=== PATIENT | female | born 1975 | race Caucasian/White ===

== ENCOUNTER 2024-10-09 15:16 | Outpatient (CLI) | payer OTHER, SELFPAY ==
--- NOTE | 2024-10-09 15:30 | MR_ITS ---
EXAM: MRI of the LEFT KNEE, without contrast CLINICAL HISTORY: Other specified joint disorders, left knee. Suspected ganglion cyst. COMPARISONS: None available. TECHNICAL: MR sequences of the left knee: sagittals: PD, PDFS coronals: PD, STIR axials: PD, T2 FS CONTRAST: None SEDATION: None FINDINGS: Bones: No fracture, bone marrow contusion, or other suspicious bone marrow signal abnormality. 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 Retinacula: The medial and lateral retinacula are intact. Fat pads: The infrapatellar, quadriceps, and prefemoral fat pads are unremarkable. Knee joint: Effusion: Physiologic amount of joint fluid. Popliteal cyst: None. Intra-articular bodies: None. Posteromedial corner: The semimembranosus and pes anserine tendons are intact. Medial compartment: Medial meniscus: Intact. Cartilage: 3 x 3 mm area of grade II chondromalacia over the weight-bearing portion of the medial femoral condyle with a single superimposed slitlike full- thickness chondral fissure and minimal subjacent subchondral edema-like signal. Lateral compartment: Lateral meniscus: Intact. Cartilage: Single slitlike full-thickness chondral fissure over the posterior portion of the lateral tibial plateau. Ligaments: Anterior cruciate ligament: Intact. Posterior cruciate ligament: Intact. Medial collateral ligament: Intact. Posterior oblique ligament: Intact. Fibular collateral ligament: Intact. Posterolateral corner: The distal biceps femoris tendon, iliotibial band, popliteus tendon, popliteus muscle, popliteofibular ligament, and arcuate ligament are intact. Extensor mechanism: Patellar tendon: Intact. Quadriceps tendon: Intact. 2.3 cm in craniocaudad dimension by 2.0 cm in AP dimension by 1.3 cm in transverse dimension ganglion/synovial cyst originating from and extending anterior to the proximal tibiofibular joint. IMPRESSION: 1. 2.3 x 2.0 x 1.3 cm ganglion/synovial cyst originating from and extending anterior to the proximal tibiofibular joint. 2. 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 3. 3 x 3 mm area of grade II chondromalacia over the weight-bearing portion of the medial femoral condyle with a single superimposed slitlike full-thickness chondral fissure and minimal subjacent subchondral edema-like signal. 4. Single slitlike full-thickness chondral fissure over the posterior portion of the lateral tibial plateau. 5. No ligamentous, meniscal, or tendinous pathology of the left knee. RCB Electronically signed on 10/10/2024 9:16:00 AM by Nacho Smyth M.D.
== END 2024-10-09 15:17 | disposition home or self-care (01) ==
LOC: MRI 15:16
PROVIDERS: Visit Provider Orthopaedic Surgery Sports Medicine
DX: M25.862 Other specified joint disorders, left knee (principal); M67.462 Ganglion, left knee; M22.42 Chondromalacia patellae, left knee
CPT/HCPCS: 73721

== ENCOUNTER 2024-11-27 09:55 | Day surgery (SDC) | payer OTHER, SELFPAY ==
[2024-11-27] VITALS (13 sets, daily range): BP systolic 98–139; BP diastolic 63–89; PULSE 65–86; RESP 12–16; TEMP 36.1–36.8; O2SAT 97–100; BMI 24.3
[2024-11-27 10:11] LABS: Ur HCG Qualitative* Negative (Negative)
[2024-11-27] MEDS: SODIUM CHLORIDE 0.9 % (FLUSH) 10 ML SYRINGE IVF (10:30)
[2024-11-27] MEDS: LACTATED RINGERS 1000 ML 1,000 ML 100 ML IV (10:30)
--- NOTE | 2024-11-27 11:51 | W.PM.H&PU ---
History & Physical Update History & Physical Update H&P Reviewed and patient assessed: No changes noted
--- NOTE | 2024-11-27 13:08 | P.ORPRC_ITS ---
Procedure Note Date of procedure: 11/27/24 Procedure: PREOPERATIVE DIAGNOSIS: 1. Left proximal tib-fib benign cyst, suspect ganglion cyst POSTOPERATIVE DIAGNOSIS: 1. Left proximal tib-fib benign cyst, suspect ganglion cyst PROCEDURE: 1. Left proximal tib-fib benign cyst open excision SURGEON: Virgil Dorsey MD. PHOTOGRAPHY SPOTTER: Bong Rodrigez PA-C - Of note, an plumber's assistant was critical for this case to aid in patient positioning, tissue retraction, limb manipulation/positioning, patient safety, & closure. ANESTHESIA: Spinal anesthetic EBL: 2ml IMPLANTS: None TOURNIQUET: 20 minutes at 250 torr SPECIMEN: Left proximal tib-fib cyst COMPLICATIONS: None evident INDICATIONS: The patient is a pleasant 49-year-old female who has experienced left proximal tib-fib cyst formation with associated pain that has worsened over last few months. Nonoperative management has been tried but unsuccessful. Given the failure of nonoperative management, and how this affects daily life, surgery was recommended. DESCRIPTION OF PROCEDURE: Following a thorough discussion of risks, benefits, and alternatives consent was obtained and the operative extremity was marked. The patient was brought to the operating room and placed supine on the operating table. No antibiotics were administered as this was planned to be a local case only. Proper time-out was performed identifying proper patient, site, and procedure. The operative extremity was prepped and draped in the appropriate sterile fashion using ChloraPrep. The limb was exsanguinated and the tourniquet inflated. A longitudinal incision was made over the left proximal tib-fib joint centered over this cyst. Sharp incision through the skin and blunt dissection subcutaneous tissue allowed us to identify the cystic sac. This was mobilized from the surrounding tissues including IT band, fibular collateral ligament, and proximal lateral leg fascia. At 1 point, the cystic sac was penetrated and a thick, clear, non malodorous gelatinous fluid was expressed consistent with a ganglion cyst. The remaining sac was excised and sent for permanent pathology. Thereafter, further debridement was performed with a rongeur and cautery. At this stage, thorough irrigation normal saline was performed. Closure performed with 2-0 Vicryl and 4-0 Stratafix. Tourniquet was deflated, dressings applied, and the patient was awoken/transferred to the recovery room in stable condition. PLAN: 1. Encourage elevation of the operative extremity. 2. Range of motion of the operative extremity/digits as tolerated. 3. Ibuprofen, acetaminophen and/or oxycodone as needed for pain. 4. Follow up with PA visit in 12-16 days for wound check and suture removal.
--- NOTE | 2024-11-27 13:30 | P.ANES_ITS ---
Anesthesia Charges Start Date/Time Anesthesia Start Date: 11/27/24 Anesthesia Start Time: 12:24 Stop Date/Time Anesthesia Stop Date: 11/27/24 Anesthesia Stop Time: 13:30 Coding CPT Codes CPT Codes: ANESTH LOWER LEG SURGERY - 58694 ([id number]) P1 - NORMAL HEALTHY PATIENT, QK - COMMERCIAL TITLE EXAMINER 2-4 CNCRNT ANETerese PROC, QX - TROLLEY CAR OVERHAULER SVChapis W/ MED DIRECTION
--- NOTE | 2024-11-27 13:30 | W.ANESCHARGE ---
Anesthesia Charges Start Date/Time Anesthesia Start Date: 11/27/24 Anesthesia Start Time: 12:24 Stop Date/Time Anesthesia Stop Date: 11/27/24 Anesthesia Stop Time: 13:30 Coding CPT Codes CPT Codes: ANESTH LOWER LEG SURGERY - 00683 ([id number]) P1 - NORMAL HEALTHY PATIENT, QK - VISUAL EDUCATION DIRECTOR 2-4 CNCRNT ANETerese PROC, QX - SHIM PLUG CUTTER SVChapis W/ MED DIRECTION
--- NOTE | 2024-11-27 13:34 | P.ANES_ITS ---
Anesthesia Charges Start Date/Time Anesthesia Start Date: 11/27/24 Anesthesia Start Time: 12:24 Stop Date/Time Anesthesia Stop Date: 11/27/24 Anesthesia Stop Time: 13:30 Coding CPT Codes CPT Codes: ANESTH LOWER LEG SURGERY - 09100 ([id number]) P1 - NORMAL HEALTHY PATIENT, QK - RESIDENTIAL SALES REP 2-4 CNCRNT ANETerese PROC, QX - GRIDDLE ATTENDANT SVChapis W/ MED DIRECTION
--- NOTE | 2024-11-27 13:34 | W.ANESCHARGE ---
Anesthesia Charges Start Date/Time Anesthesia Start Date: 11/27/24 Anesthesia Start Time: 12:24 Stop Date/Time Anesthesia Stop Date: 11/27/24 Anesthesia Stop Time: 13:30 Coding CPT Codes CPT Codes: ANESTH LOWER LEG SURGERY - 38653 ([id number]) P1 - NORMAL HEALTHY PATIENT, QK - WOOD FORM BUILDER 2-4 CNCRNT ANETerese PROC, QX - AIRLINE PILOT SVChapis W/ MED DIRECTION
== END 2024-11-27 15:30 | disposition home or self-care (01) ==
LOC: OR 09:57
PROVIDERS: Anesthesiology; Visit Provider Orthopaedic Surgery Sports Medicine
PROC: (CPT 27630; principal; 2024-11-27 11:15)
DX: M67.462 Ganglion, left knee (principal)
CPT/HCPCS: 27630; 01470; 81025; A9270; J0690; J1100; J2250; J2405; J2704; J3010; J7120